=== PATIENT | female | born 1955 | race American Indian/Alaskan Native ===

== ENCOUNTER 2018-03-07 14:31 | Emergency (ER) | payer SELFPAY ==
[2018-03-07 14:41] VITALS: BP 136/99
--- NOTE | 2018-03-07 19:15 | Emergency Department Report ---
ED Extremity Problem HPI - General Chief complaint: Extremity Problem,Nontraumatic Stated complaint: KNEE PAIN Time Seen by Provider: 03/07/18 19:02 Source: patient, family Mode of arrival: Ambulatory Limitations: No Limitations - History of Present Illness Initial comments: Patient reported that she is having bloody aches, right hip and knee pain 3 weeks. She says she just moved here from [place] and states that she fell a couple times after her right leg gave out. Patient says she ambulates with a cane. She says she is having generalized pain 7 out of 10, knee pain and right knee pain 6 out of 10 right hip pain 8 out of 10 on all achy. Denies any bruising, contusion or laceration to extremities. Denies any head injury. Patient says she has a history of falling due to her rheumatoid arthritis. She reports she just moved to [place] and she is trying to get her Medicare established. She states that she called her doctor in [place] but she couldn't order anything for her because she hasn't seen her for over a year. Pain is worse at movement and better with rest. Patient says she is getting over-the- counter pain medication which has not helped.. Complaint: extremity pain, joint paint Onset/Timin -: week(s) Location: right, lower extremity, knee History of Same: Yes -: No myalgia, Yes arthralgia, No fever, No associated dyspnea, No associated chest pain Radiation: none Severity scale (0 -10): 8 Quality: aching Consistency: constant Improves with: immobilization Worsens with: weight bearing, walking, exertion Associated Symptoms: arthralgias. denies: chest pain, shortness of breath, fever, myalgias, rash - Related Data Previous Rx's Medication Instructions Recorded Last Taken Type traMADol [Ultram] 50 mg PO Q6HR PRN #16 tablet 03/08/18 Unknown Rx Allergies Allergy/AdvReac Type Severity Reaction Status Date / Time tetracycline AdvReac Unknown Verified 03/07/18 14:43 ED Review of Systems ROS: Stated complaint: KNEE PAIN Other details as noted in HPI Constitutional: denies: chills, fever Eyes: denies: eye pain, vision change ENT: denies: ear pain, throat pain Respiratory: denies: cough, shortness of breath, SOB with exertion, SOB at rest , stridor, wheezing Cardiovascular: denies: chest pain, palpitations, edema, syncope Gastrointestinal: denies: nausea, vomiting Genitourinary: denies: hematuria Musculoskeletal: arthralgia. denies: back pain, joint swelling Skin: denies: rash, lesions Neurological: abnormal gait. denies: headache, weakness, numbness, paresthesias , confusion, vertigo ED Past Medical Hx - Past Medical History Previous Medical History?: Yes Hx Arthritis: Yes (osteoarthritis and rheumatoid arthritis) Hx Asthma: Yes Hx COPD: Yes Additional medical history: History of multiple falls - Surgical History Past Surgical History?: Yes Additional Surgical History: Sweat glands removed - Family History Family history: diabetes, hypertension - Social History Smoking Status: Former Smoker Substance Use Type: None Other Social History: She lives with her daughter - Medications Home Medications: Home Medications Medication Instructions Recorded Confirmed Last Taken Type traMADol [Ultram] 50 mg PO Q6HR PRN #16 tablet 03/08/18 Unknown Rx ED Physical Exam - General Limitations: No Limitations General appearance: alert, in no apparent distress - Head Head exam: Present: atraumatic, normocephalic, normal inspection, other (normal exam) - Eye Eye exam: Present: normal appearance, PERRL, EOMI. Absent: periorbital swelling , periorbital tenderness Pupils: Present: normal accommodation - ENT ENT exam: Present: normal exam, normal orophraynx, mucous membranes moist - Neck Neck exam: Present: normal inspection, full ROM, other (no C-spine tenderness). Absent: tenderness, lymphadenopathy - Respiratory Respiratory exam: Present: normal lung sounds bilaterally. Absent: respiratory distress, chest wall tenderness, accessory muscle use - Cardiovascular Cardiovascular Exam: Present: regular rate, normal rhythm, normal heart sounds. Absent: systolic murmur, diastolic murmur - GI/Abdominal GI/Abdominal exam: Present: soft, normal bowel sounds. Absent: distended, tenderness, guarding, rebound, rigid, organomegaly, mass, bruit, pulsatile mass , hernia - Extremities Exam Extremities exam: Present: normal inspection, full ROM (patient with full range of motion to all extremity but she is limping and uses a cane. ), tenderness ( tender to palpate the right hip joint), normal capillary refill, other (No clubbing, cyanosis or edema. +2 pulses all extremities and no neurovascular compromise). Absent: pedal edema, joint swelling, calf tenderness - Expanded Lower Extremity Exam Right Hip exam: Present: normal inspection, full ROM (full motion to right hip joint but she reports pain with adduction and abduction.), tenderness (right hip joint ), pelvic stability. Absent: swelling, abrasion, laceration, ecchymosis, deformity, crepidus, dislocation, erythema, external rotation, internal rotation , shortening Upper Leg exam: Present: normal inspection, full ROM. Absent: tenderness, swelling, abrasion, laceration, ecchymosis, deformity, crepidus, dislocation, erythema Knee exam: Present: normal inspection, full ROM (limited range of motion to right knee she reports pain with flexion and extension.), tenderness (right knee anteriorly), full knee extension (but very painful). Absent: swelling, abrasion, laceration, ecchymosis, deformity, crepidus, dislocation, erythema, effusion, pain w/ pronation/supination, posterior draw sign, pain/laxity with valgus, pain/laxity with varus Lower Leg exam: Present: normal inspection, full ROM. Absent: tenderness, swelling, abrasion, laceration, ecchymosis, deformity, crepidus, dislocation, erythema, palpable cord, Tara's sign Ankle exam: Present: normal inspection, full ROM. Absent: tenderness, swelling , abrasion, laceration, ecchymosis, deformity, crepidus, dislocation, erythema Foot/Toe exam: Present: normal inspection. Absent: full ROM, tenderness, swelling, abrasion, laceration, ecchymosis, deformity, crepidus, dislocation, erythema, amputation, puncture wound, foreign body, calcaneal tenderness, tenderness at base of 5th metatarsal, nail avulsion, subungual hematoma Neuro vascular tendon exam: Present: no vascular compromise. Absent: pulse deficit, abnormal cap refill, motor deficit, sensory deficit, tendon deficit, extremity cold to touch, pallor, abnormal 2-point discrimination, decreased fine /light touch, foot drop, peroneal nerve deficit, significant pain with passive ROM of distal joint Gait: Positive: observed and limited by pain - Back Exam Back exam: Present: normal inspection, full ROM. Absent: tenderness, CVA tenderness (R), CVA tenderness (L), muscle spasm, paraspinal tenderness, vertebral tenderness, rash noted - Neurological Exam Neurological exam: Present: alert, oriented X3, abnormal gait (patient limp into the right side.), reflexes normal - Psychiatric Psychiatric exam: Present: normal affect, normal mood - Skin Skin exam: Present: warm, dry, intact, normal color. Absent: rash ED Course Vital Signs 03/07/18 03/08/18 14:33 01:00 Temperature 98.8 F Pulse Rate 91 H 88 Respiratory 20 17 Rate Blood Pressure 136/99 O2 Sat by Pulse 97 99 Oximetry - Reevaluation(s) Reevaluation #1: 03/07/18 21:31 Patient given prednisone 60 mg by mouth, Toradol 30 mg IM and Percocet 5/325 mg 2 tablets. Emergency room relief of pain. Still awaiting x-ray results. Reevaluation #2: 03/07/18 22:[address] Dean in regards to patient x-ray of right knee which questionable tibial plateau fracture as dictated by radiologist. CT scan of the right knee without contrast ordered. Patient and family updated unplanned and radiology findings. Reevaluation #3: 03/08/18 00:[address] scan shows chronic appearing lateral tibial pulse to fracture and degenerative changes. Patient says she had fell many times in the past so she could've fractured it but she didn't know because she did not follow-up. I spoke with Dr. Dean who wants patient to be placed in a knee immobilizer will Walker and follow-up outpatient orthopedic. Her pain is better after she was given pain medication. She should notice walking around with and without her cane. - Orthopedic Splinting/Casting Injury #1 Side: right Lower Extremity Injury Location: knee Lower Extremity Immobilizer: knee immobilizer Other Orthopedic Equipment: walker Additional Comments: Patient will good color, sensation, movement and temperature to lower extremities status post knee immobilizer. +2 pedal pulses ED Medical Decision Making - Radiology Data Radiology results: report reviewed X-ray of right hip reveals normal exam. X-ray of right knee reveals possible tibial plateau fracture. We'll do CT scan CT scan of right lower extremity specifically knee show chronic Lateral tibial plateau fracture Patient: TRUNG GUERRA MR#: [id number] : 1955 Acct:[id number] Age/Sex: 62 / F ADM Date: 03/07/18 Loc: ED Attending Dr: Ordering Physician: BALWINDER SEARS Date of Service: 03/07/18 Procedure(s): XR hip 2-3V RT Accession Number(s): [id number] cc: BALWINDER SEARS Fluoro Time In Minutes: FINAL REPORT PROCEDURE: XR HIP 2-3V RT TECHNIQUE: RIGHT hip radiographs, 2 views each, including AP view of the pelvis. HISTORY: fall with rt hip pain COMPARISON: No prior studies are available for comparison. FINDINGS: Fracture (s) and/or Dislocation(s): None . Joint space(s): Normal. Soft tissues: Normal. Bone mineralization: Normal. Foreign bodies: None. IMPRESSION: Normal Examination. Transcribed By: BRP Dictated By: CHERI REDDY MD Electronically Authenticated By: CHERI REDDY MD Signed Date/Time: 03/07/182032 DD/ 32 TD/TT: 03/07/182032 Patient: TRUNG GUERRA MR#: [id number] : 1955 Acct:[id number] Age/Sex: 62 / F ADM Date: 03/07/18 Loc: ED Attending Dr: Ordering Physician: BALWINDER SEARS Date of Service: 03/07/18 Procedure(s): XR knee 3V RT Accession Number(s): [id number] cc: BALWINDER SEARS Fluoro Time In Minutes: FINAL REPORT EXAM: XR KNEE 3V RT HISTORY: fall with rt knee pain TECHNIQUE: AP, oblique, and lateral views of the right knee PRIORS: None. FINDINGS: The lateral tibial plateau is lower in position than the medial plateau. Findings are concerning for possible lateral tibial plateau fracture. No discrete fracture line is seen however. No other acute fracture is seen. No dislocation is seen. The soft tissues demonstrate a small suprapatellar joint effusion. IMPRESSION: Positioning of the lateral tibial plateau is below the medial plateau. Findings are concerning for tibial plateau fracture. However, actual fracture line is not visible. DD/ 56 TD/TT: 03/07/182156 Patient: TRUNG GUERRA MR#: [id number] : 1955 Acct:[id number] Age/Sex: 62 / F ADM Date: 03/07/18 Loc: ED Attending Dr: Ordering Physician: BALWINDER SAERS Date of Service: 03/07/18 Procedure(s): CT lower extremity RT wo con Accession Number(s): [id number] cc: BALWINDER SEARS FINAL REPORT PROCEDURE: CT LOWER EXTREMITY RT WO CON TECHNIQUE: Computerized axial tomography of the RIGHT knee was performed without contrast. HISTORY: XR findings with? rt knee tiibial plateau FX COMPARISON: X-ray FINDINGS: Bony structures including marrow spaces: Chronic appearing lateral tibial plateau fracture with angulation and sclerosis. There is 0.6 cm depression of the articular surface. Neurovascular structures: Normal. Soft tissues: Normal. Joint space: Moderately advanced degenerative change of the lateral compartment. Mild to moderate degenerative change of the medial compartment. No joint effusion seen. IMPRESSION: Chronic appearing lateral tibial plateau fracture. Degenerative change. Transcribed By: BRMc Dictated By: CHERI REDDY MD Electronically Authenticated By: CHERI REDDY MD Signed Date/Time: 03/07/182351 DD/ 51 TD/TT: 03/07/182351 - Medical Decision Making 62-year-old patient here complaining that she fell a few times and she has rheumatoid arthritis and just move to [place] so she cannot get in with Dr. durbin and requested to be referred to a primary care doctor because she is winded for insurance come through and he should come here soon. Patient says she is disabled for rheumatoid arthritis but because she just came to [place] she is to switch her insurance. She says she fell several times which is not new and she uses a cane but she says she fell a few weeks ago and she is having right hip and right knee pain and she is here to see if she has any broken bones to her hip or knee. She says she's been taking [id number] pain medication does not help. EXAMINED THIS PATIENT AND SHE WAS GIVEN PAIN MEDICATION TO RELIEVE HER PAIN WHICH HELPED. PATIENT IS NOW STABLE AND THIS CASE WAS DISCUSSED WITH DR. DEAN. HE ALSO SAW PATIENT. PATIENT HAD X-RAYS AND CT SCAN DONE WHICH WAS DICTATED BY RADIOLOGIST AND REVIEWED BY MYSELF AND DR. DEAN. PATIENT HAD X- RAY OF RIGHT HIP WHICH REVEALS NORMAL EXAM, X-RAY OF RIGHT KNEE REVEALS POSSIBLE TIBIAL PLATEAU FRACTURE AND IT WAS DECIDED BY DR. DEAN. THE PATIENT SHOULD HAVE A CT SCAN WHICH WAS DONE AND IT SHOWS THAT PATIENT HAS CHRONIC LATERAL TIBIAL PROTOCOL FRACTURE. I Discussed results of x-ray and CT scan with patient and family and she says she fell several times over the years that she can't remember and she did not really go to the doctor since possible that she might of had a fractured knee. She has full range of motion to her knee only complains of pain with flexion and extension which is worse on extension. A/P 1: Chronic right lateral tibial plateau fracture-patient placed in knee immobilizer and given a walker and will be referred to orthopedic doctor 2: Arthralgia multiple psych to right hip and right knee-patient given Toradol 30 mg IM, oxycodone 5/325 mg 2 tablets by mouth and prednisone 60 mg by mouth which relieved her pain significantly. She'll be discharged home on Ultram. 3: Multiple ground level fall-patient educated on fall in an elderly and instructed to use her walker and avoid cluttered areas 4: osteoarthritis right knee-referral to orthopedic. Patient given prescription for Ultram up and discharge for emergency room. She was discharged home with her daughter. Patient educated on fall prevention, medication, discharge diagnosis, knee immobilizer and walker, treatment plan and need to follow up with orthopedic doctor for management of tibial plateau fracture and chronic pain. Patient discharged home in stable condition with her daughter. She is in stable condition and pain is better. Knee brace and after given pain medication. Her vital signs are stable and she is afebrile. Patient ambulated in walker. She was given a referral to primary care physician and also to Dr. Reese orthopedic doctor. She is nontoxic in appearance and I instructed her if she cannot get in with primary care she can use some [facility] until she can get in with primary care doctor to manage her chronic medical problems. I instructed her and her daughter if her condition worsens, to return to the emergency room. They both voiced understanding of discharge instructions. - Differential Diagnosis fracture joint, inflammatory process joint, joint effusion, MSK Critical care attestation.: If time is entered above; I have spent that time in minutes in the direct care of this critically ill patient, excluding procedure time. ED Disposition Clinical Impression: Arthralgia of multiple sites, Fall from ground level Closed fracture of lateral portion of right tibial plateau Qualifiers: Encounter type: initial encounter Qualified Code(s): S82.121A - Displaced fracture of lateral condyle of right tibia, initial encounter for closed fracture Osteoarthritis of right knee Qualifiers: Osteoarthritis type: unspecified Qualified Code(s): M17.11 - Unilateral primary osteoarthritis, right knee Disposition: - TO HOME OR SELFCARE Is pt being admited?: No Does the pt Need Aspirin: No Condition: Stable Instructions: Leg Fracture (ED), Osteoarthritis (ED), Knee Pain (ED), Arthralgia (ED), Knee Immobilizer (ED) Additional Instructions: Please follow up with orthopedic doctor as discussed and referred a discharge instruction paperwork for details Please follow up with primary care doctor see referral and discharge instruction paperwork Take Ultram for pain but please do not drive or operate heavy machinery as this medication causes drowsiness You have a fracture of your leg bone that is attached to knee joint which is referred to as your tibia which is the bigger bone in your leg. Radiology report suggests that this is a chronic fracture meaning that it was there for a while. Please use knee immobilizer and walker until you're directed by orthopedic doctor to do differently. Prescriptions: traMADol [Ultram] 50 mg PO Q6HR PRN #16 tablet PRN Reason: Pain Referrals: [facility] [Outside] - 03/10/18 LIZETTE REESE MD [Staff Physician] - 03/09/18 WILL ISAAC MD [Staff Physician] - 03/10/18 Forms: Accompanied Note
[2018-03-07] MEDS ORDERED: DELTASONE PO ONE (19:16)
[2018-03-07] MEDS ORDERED: PERCOCET 5/325 PO ONE (19:16)
[2018-03-07] MEDS ORDERED: TORADOL IM ONE (19:16)
--- NOTE | 2018-03-07 20:37 | XRay Report ---
FINAL REPORT PROCEDURE: XR HIP 2-3V RT TECHNIQUE: RIGHT hip radiographs, 2 views each, including AP view of the pelvis. HISTORY: fall with rt hip pain COMPARISON: No prior studies are available for comparison. FINDINGS: Fracture (s) and/or Dislocation(s): None . Joint space(s): Normal. Soft tissues: Normal. Bone mineralization: Normal. Foreign bodies: None. IMPRESSION: Normal Examination.
--- NOTE | 2018-03-07 22:01 | XRay Report ---
FINAL REPORT EXAM: XR KNEE 3V RT HISTORY: fall with rt knee pain TECHNIQUE: AP, oblique, and lateral views of the right knee PRIORS: None. FINDINGS: The lateral tibial plateau is lower in position than the medial plateau. Findings are concerning for possible lateral tibial plateau fracture. No discrete fracture line is seen however. No other acute fracture is seen. No dislocation is seen. The soft tissues demonstrate a small suprapatellar joint effusion. IMPRESSION: Positioning of the lateral tibial plateau is below the medial plateau. Findings are concerning for tibial plateau fracture. However, actual fracture line is not visible.
--- NOTE | 2018-03-07 23:56 | Cat Scan Report ---
FINAL REPORT PROCEDURE: CT LOWER EXTREMITY RT WO CON TECHNIQUE: Computerized axial tomography of the RIGHT knee was performed without contrast. HISTORY: XR findings with? rt knee tiibial plateau FX COMPARISON: X-ray FINDINGS: Bony structures including marrow spaces: Chronic appearing lateral tibial plateau fracture with angulation and sclerosis. There is 0.6 cm depression of the articular surface. Neurovascular structures: Normal. Soft tissues: Normal. Joint space: Moderately advanced degenerative change of the lateral compartment. Mild to moderate degenerative change of the medial compartment. No joint effusion seen. IMPRESSION: Chronic appearing lateral tibial plateau fracture. Degenerative change.
== END 2018-03-08 01:00 | disposition home or self-care (01) ==
LOC: ED 14:31
DX: S82.121A Displaced fracture of lateral condyle of right tibia, initial encounter for closed fracture (principal); M17.11 Unilateral primary osteoarthritis, right knee; M06.9 Rheumatoid arthritis, unspecified; J44.9 Chronic obstructive pulmonary disease, unspecified; Z87.891 Personal history of nicotine dependence; Z88.1 Allergy status to other antibiotic agents; W18.30XA Fall on same level, unspecified, initial encounter; Y93.89 Activity, other specified; Y92.89 Other specified places as the place of occurrence of the external cause; Y99.8 Other external cause status
CPT/HCPCS: 29505; 73502; 73562; 73700; 96372; 99284; J1885; J7512